=== PATIENT | female | born 1955 | race African-American/Black ===

== ENCOUNTER 2017-07-02 13:30 | Day surgery (SDC) | payer OTHER ==
[2017-07-02 14:24] VITALS: BMI 26.6
[2017-07-02] MEDS ORDERED: BETAMET ACET/BETAMET NA PH 30 MG/5 ML VIAL ONE (14:55)
[2017-07-02] MEDS ORDERED: BUPIVACAINE HCL/PF 0.5% (5MG/ML) 10 ML VIAL ONE (14:55)
[2017-07-02] MEDS ORDERED: LIDOCAINE HCL 1%, 10 MG/ML (20ML VIAL) ONE (14:55)
[2017-07-02] MEDS ORDERED: MIDAZOLAM HCL 2 MG/2 ML SINGLE DOSE VIAL ONE ×3 (15:52→16:00)
[2017-07-02] MEDS ORDERED: IOHEXOL 180 MG/1 ML ML IJ ONE (16:03)
[2017-07-02] MEDS ORDERED: LIDOCAINE HCL 1%, 10 MG/ML (50 mL VIAL) IJ ONE (16:03)
[2017-07-02] MEDS ORDERED: BUPIVACAINE HCL/PF 0.25% (2.5MG/ML) 10 ML VIAL IJ ONE (16:03)
[2017-07-02] MEDS ORDERED: BETAMET ACET/BETAMET NA PH 30 MG/5 ML VIAL IJ ONE (16:04)
[2017-07-02] MEDS ORDERED: BUPIVACAINE HCL/PF 0.5% (5MG/ML) 10 ML VIAL IJ ONE (16:05)
[2017-07-02 17:40] VITALS: BP 116/64; PULSE 73
--- NOTE | 2017-07-08 17:18 | OP ---
DATE OF OPERATION: 07/02/2017 PREOPERATIVE DIAGNOSES: Low back pain, lumbar radiculopathy, lumbar disk disease and back surgery. POSTOPERATIVE DIAGNOSES: Low back pain, lumbar radiculopathy, lumbar disk disease and back surgery. PROCEDURE: Lumbar epidural steroid injection at L5-S1 level on the right side, interlaminar approach. ANESTHESIA: Local and MAC. ANESTHESIOLOGIST: DESCRIPTION OF PROCEDURE: I discussed in detail about the risks, benefits and alternatives of treatment not only limited to infection, fever, headache, numbness, tingling, weakness, injury to nerves, blood vessels and muscles. Under fluoroscopy, L5-S1 area was identified. At this level, 3 mL of 1% lidocaine was infiltrated into the skin and subcutaneous tissue. A 3-1/2-inch 20-gauge Tuohy needle was used to approach the epidural space with loss of resistance technique under fluoroscopy in both AP and oblique view. Omnipaque 2 mL was injected to see the flow of dye into the epidural space both cranially and caudally. There was no venous uptake or CSF spread. Celestone 2.5 mL mixed with 2.5 mL of 0.25% Marcaine for a total of 5 mL, all of which was injected at this level after negative aspiration. 1% lidocaine was infiltrated. Bleeding was checked. Betadine was wiped. A sterile Band-Aid was placed. There was no immediate complication. Patient was transported to recovery room and patient was discharged as per criteria. Patient was told to apply ice. If any problem, call me or report to ER. Patient was given a followup appointment. BEV BAZZI M.D. [id number]
== END 2017-07-02 15:25 | disposition home or self-care (01) ==
LOC: JOR 13:30 → JASU-SURG 13:30
PROVIDERS: ATTEND Physical Medicine & Rehabilitation
PROC: 3E0S33Z Introduction of Anti-inflammatory into Epidural Space, Percutaneous Approach (ICD-10-PCS; 2017-07-02)
PROC: B01BYZZ Fluoroscopy of Spinal Cord using Other Contrast (ICD-10-PCS; 2017-07-02)
PROC: 3E0S3BZ Introduction of Anesthetic Agent into Epidural Space, Percutaneous Approach (ICD-10-PCS; principal; 2017-07-02 15:00)
DX: M54.16 Radiculopathy, lumbar region (principal); M54.5 Low back pain; Z98.1 Arthrodesis status
CPT/HCPCS: 76000-TC

== ENCOUNTER 2017-11-05 06:41 | Day surgery (SDC) | payer OTHER ==
[2017-11-04 09:43] VITALS: BMI 26.6
[2017-11-05 07:21] VITALS: TEMP 98.3
[2017-11-05] MEDS ORDERED: BETAMET ACET/BETAMET NA PH 30 MG/5 ML VIAL ONE ×2 (07:41→08:01)
[2017-11-05] MEDS ORDERED: BUPIVACAINE HCL/PF 0.25% (2.5MG/ML) 10 ML VIAL ONE (07:41)
[2017-11-05] MEDS ORDERED: LIDOCAINE HCL 1%, 10 MG/ML (20ML VIAL) ONE (07:41)
[2017-11-05] MEDS ORDERED: PROPOFOL 20 ML ONE ×11 (07:42→07:43)
[2017-11-05] MEDS ORDERED: ePHEDrine SULFATE 50 MG/1 ML AMPULE ONE (07:42)
[2017-11-05] MEDS ORDERED: SUCCINYLCHOLINE CHLORIDE 200 MG/10 ML VIAL ONE (07:43)
[2017-11-05] MEDS ORDERED: methylPREDNISolone ACET (DEPO) 40 MG/1 ML VIAL ONE (08:03)
[2017-11-05] MEDS ORDERED: BUPIVACAINE HCL/PF 0.5% (5MG/ML) 10 ML VIAL ONE (08:41)
[2017-11-05] MEDS ORDERED: BETAMET ACET/BETAMET NA PH 30 MG/5 ML VIAL IM ONE (08:42)
[2017-11-05] MEDS ORDERED: LIDOCAINE HCL 1%, 10 MG/ML (20ML VIAL) PNB ONE (08:42)
[2017-11-05] MEDS ORDERED: IOHEXOL 180 MG/1 ML ML IJ ONE (08:42)
[2017-11-05] MEDS ORDERED: BUPIVACAINE HCL/PF 0.25% (2.5MG/ML) 10 ML VIAL IJ ONE (08:42)
[2017-11-05] MEDS ORDERED: LIDOCAINE HCL/PF 2% SDV 5ML VIAL ONE ×3 (10:45→12:38)
[2017-11-05 11:54] VITALS: BP 143/77; PULSE 84
== END 2017-11-05 12:22 | disposition home or self-care (01) ==
LOC: JASU-SURG 06:41
PROVIDERS: ATTEND Physical Medicine & Rehabilitation
PROC: 3E0T33Z Introduction of Anti-inflammatory into Peripheral Nerves and Plexi, Percutaneous Approach (ICD-10-PCS; 2017-11-05)
PROC: BR16ZZZ Fluoroscopy of Lumbar Facet Joint(s) (ICD-10-PCS; 2017-11-05)
PROC: 3E0T3BZ Introduction of Anesthetic Agent into Peripheral Nerves and Plexi, Percutaneous Approach (ICD-10-PCS; principal; 2017-11-05 08:00)
DX: M46.96 Unspecified inflammatory spondylopathy, lumbar region (principal); M54.89 Other dorsalgia
CPT/HCPCS: 76000-TC

== ENCOUNTER 2018-01-21 10:07 | Day surgery (SDC) | payer OTHER ==
[2018-01-20 13:45] VITALS: BMI 28.0
[2018-01-21 10:44] VITALS: TEMP 98.8
[2018-01-21] MEDS ORDERED: PROPOFOL 20 ML ONE (11:56)
[2018-01-21] MEDS ORDERED: BUPIVACAINE HCL/PF 0.5% (5MG/ML) 10 ML VIAL ONE (11:59)
[2018-01-21] MEDS ORDERED: BUPIVACAINE HCL/PF 0.5% (5MG/ML) 10 ML VIAL NR ONE (12:06)
[2018-01-21] MEDS ORDERED: IOHEXOL 180 MG/1 ML ML IJ ONE (12:07)
[2018-01-21] MEDS ORDERED: LIDOCAINE HCL 1%, 10 MG/ML (20ML VIAL) NR ONE (12:07)
[2018-01-21] MEDS ORDERED: BETAMET ACET/BETAMET NA PH 30 MG/5 ML VIAL IM ONE (12:10)
[2018-01-21] MEDS ORDERED: BETAMET ACET/BETAMET NA PH 30 MG/5 ML VIAL ONE (14:24)
[2018-01-21] MEDS ORDERED: LIDOCAINE HCL 1%, 10 MG/ML (20ML VIAL) ONE (14:24)
[2018-01-21] MEDS ORDERED: BUPIVACAINE HCL/PF 0.25% (2.5MG/ML) 10 ML VIAL ONE (14:24)
[2018-01-21 14:54] VITALS: BP 117/69; PULSE 62
== END 2018-01-21 13:40 | disposition home or self-care (01) ==
LOC: JASU-SURG 10:07
PROVIDERS: ATTEND Physical Medicine & Rehabilitation
PROC: 3E0T3BZ Introduction of Anesthetic Agent into Peripheral Nerves and Plexi, Percutaneous Approach (ICD-10-PCS; 2018-01-21)
PROC: BR16YZZ Fluoroscopy of Lumbar Facet Joint(s) using Other Contrast (ICD-10-PCS; 2018-01-21)
PROC: 3E0T33Z Introduction of Anti-inflammatory into Peripheral Nerves and Plexi, Percutaneous Approach (ICD-10-PCS; principal; 2018-01-21 11:30)
DX: M46.96 Unspecified inflammatory spondylopathy, lumbar region (principal); M54.5 Low back pain
CPT/HCPCS: 76000-TC-FY